=== PATIENT | male | born 1990 | race American Indian/Alaskan Native ===

== ENCOUNTER 2017-03-20 11:17 | Emergency (ER) | payer OTHER ==
[2017-03-20 11:28] VITALS: BP 115/86
[2017-03-20] MEDS ORDERED: XYLOCAINE 1% MPF 5 mL INFILTRATI ONE (11:54)
[2017-03-20] MEDS ORDERED: ZITHROMAX PO ONE (11:54)
[2017-03-20] MEDS ORDERED: ROCEPHIN IM ONE (11:54)
--- NOTE | 2017-03-20 11:58 | Emergency Department Report ---
ED Male HPI - General Chief complaint: Urogenital-Male Stated complaint: STD CHECK Time Seen by Provider: 03/20/17 11:38 Source: patient Mode of arrival: Ambulatory Limitations: No Limitations - History of Present Illness Complaint: dysuria -: Gradual Radiation: none Severity: mild Quality: burning new sexual partner (partner tx for chlamy and kei yesterday- known exposure) - Related Data Sexually active: Yes Allergies Allergy/AdvReac Type Severity Reaction Status Date / Time No Known Allergies Allergy Unverified 03/20/17 11:23 ED Review of Systems ROS: Stated complaint: STD CHECK Other details as noted in HPI Comment: All other systems reviewed and negative Constitutional: no symptoms reported Eyes: as per HPI ENT: as per HPI Respiratory: no symptoms reported Cardiovascular: as per HPI Endocrine: no symptoms reported Gastrointestinal: as per HPI Genitourinary: as per HPI, dysuria, discharge. denies: testicular pain, testicular mass Musculoskeletal: as per HPI Skin: as per HPI Neurological: as per HPI Psychiatric: as per HPI (denies hx) Hematological/Lymphatic: as per HPI ED Past Medical Hx - Past Medical History Previous Medical History?: No - Surgical History Past Surgical History?: No - Social History Smoking Status: Current Every Day Smoker Substance Use Type: Alcohol, Cocaine, Marijuana, Other ED Physical Exam - General Limitations: No Limitations General appearance: alert, in no apparent distress - Head Head exam: Present: atraumatic - Eye Eye exam: Present: normal appearance Pupils: Present: normal accommodation - ENT ENT exam: Present: normal exam - Neck Neck exam: Present: normal inspection - Respiratory Respiratory exam: Present: normal lung sounds bilaterally - Cardiovascular Cardiovascular Exam: Present: regular rate - GI/Abdominal GI/Abdominal exam: Present: soft - Rectal Rectal exam: Present: deferred - exam: Present: normal inspection - Extremities Exam Extremities exam: Present: normal inspection - Back Exam Back exam: Present: normal inspection - Neurological Exam Neurological exam: Present: alert, altered, oriented X3, CN II-XII intact, normal gait - Psychiatric Psychiatric exam: Absent: normal affect (denies psych hx but odd affect. 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 Absent: rash ED Course Vital Signs 03/20/17 11:24 Temperature 97.9 F Pulse Rate 59 L Respiratory 16 Rate Blood Pressure 115/86 O2 Sat by Pulse 99 Oximetry ED Medical Decision Making - Medical Decision Making known exposure Critical care attestation.: If time is entered above; I have spent that time in minutes in the direct care of this critically ill patient, excluding procedure time. ED Disposition Clinical Impression: STD (male) Disposition: DISCHARGED TO HOME OR SELFCARE Is pt being admited?: No Does the pt Need Aspirin: No Condition: Good Instructions: Sexually Transmitted Diseases (ED), Chlamydia Infection (ED), Gonococcal Urethritis (ED) Additional Instructions: safe sex Referrals: ITALO MELENDEZ MD [Referring] - 3-5 Days Time of Disposition: 11:58
== END 2017-03-20 12:41 | disposition home or self-care (01) ==
LOC: ED 11:17
DX: A63.8 Other specified predominantly sexually transmitted diseases (principal); F17.200 Nicotine dependence, unspecified, uncomplicated; F14.10 Cocaine abuse, uncomplicated; F12.10 Cannabis abuse, uncomplicated
CPT/HCPCS: 96372; 99282; J0696

== ENCOUNTER 2017-03-26 10:37 | Emergency (ER) | payer OTHER ==
[2017-03-26 11:36] VITALS: BP 132/92
--- NOTE | 2017-03-26 16:30 | Emergency Department Report ---
HPI - General Chief Complaint: Urogenital-Male Time Seen by Provider: 03/26/17 15:50 - HPI HPI: 26-year-old male presents to ED planning of pain out of discharge and burning with urination times couple days. Patient states his sexual partner was seen here in the ED and treated for chlamydia and trichomoniasis. She denies penile or scrotal pain or swelling. Patient denies fevers/chills/nausea/vomiting/abdominal pain/shortness of breath. ED Past Medical Hx - Past Medical History Previous Medical History?: No - Surgical History Past Surgical History?: No - Social History Smoking Status: Current Every Day Smoker Substance Use Type: Alcohol ED Review of Systems ROS: Stated complaint: BURNING/TINGLING IN PENIS/ABD PAIN Other details as noted in HPI Constitutional: denies: chills, fever Eyes: denies: eye pain, eye discharge, vision change ENT: denies: ear pain, throat pain Respiratory: denies: cough, shortness of breath, wheezing Cardiovascular: denies: chest pain, palpitations Endocrine: no symptoms reported Gastrointestinal: denies: abdominal pain, nausea, diarrhea Genitourinary: frequency, discharge. denies: urgency, dysuria, hematuria, testicular pain, testicular mass Musculoskeletal: denies: back pain, joint swelling, arthralgia Skin: denies: rash, lesions Neurological: denies: headache, weakness, paresthesias Psychiatric: denies: anxiety, depression Hematological/Lymphatic: denies: easy bleeding, easy bruising Physical Exam - Physical Exam Vital Signs: Vital Signs 03/26/17 11:33 Temperature 98.4 F Pulse Rate 62 Respiratory 18 Rate Blood Pressure 132/92 O2 Sat by Pulse 100 Oximetry Physical Exam: GENERAL: Alert and oriented x3, no apparent distress, Normal Gait, atraumatic. HEAD: Head is normocephalic and a-traumatic. EYES: Extra ocular muscles are intact. Pupils are equal, round, and reactive to light and accommodation. LUNGS: Symetrical with respiration, No wheezing, no rales or crackles, CTAB. HEART: S1, S2 present, regular rate and rhythm without murmur, no rubs, no gallops. ABDOMEN: No organomegaly was noted,Positive bowel sounds, soft, and non- distended. . Nontender to palpation on all Quadrants, NO CVA tenderness. UROGENITAL: No scrotal mass, Scrotum non tender to palpation bilaterally, no hernia, no scars or penile discharge. SKIN: Warm and dry, No lesions, No ulceration or induration present. ED Course Vital Signs 03/26/17 11:33 Temperature 98.4 F Pulse Rate 62 Respiratory 18 Rate Blood Pressure 132/92 O2 Sat by Pulse 100 Oximetry ED Medical Decision Making - Medical Decision Making 26-year-old male presents with STD exposure ED course: Urinalysis ordered, chlamydia and gonorrhea sent Urinalysis negative. Patient received 250 mg of Rocephin, 1 g of azithromycin and 2000mg Flagyl Discussed the patient to abstain from sex for 7 days. Discussed safe sex practices. Discussed the follow-up department for further STD screening. Vital signs are normal patient is in no acute distress Critical care attestation.: If time is entered above; I have spent that time in minutes in the direct care of this critically ill patient, excluding procedure time. ED Disposition Clinical Impression: STD exposure, STD (sexually transmitted disease) Disposition: DISCHARGED TO HOME OR SELFCARE Is pt being admited?: No Does the pt Need Aspirin: No Condition: Stable Instructions: Sexually Transmitted Diseases (ED), Safe Sex (ED) Additional Instructions: Abstain from sex for 7-10 days Go to health department for further STD testing Instructions as given Referrals: PRIMARY CARE, [Primary Care Provider] - 3-5 Days Forms: Work/School Release Form Time of Disposition: 17:05
[2017-03-26 16:56] LABS: Bilirubin,Urine NEG (Negative); Blood,Urine NEG (Negative); Ketones,Urine NEG (Negative); Leukocyte Esterase,Urine NEG (Negative); Mucus,Urine FEW /HPF; Nitrite,Urine NEG (Negative); Protein,Urine <15 mg/dL mg/dL (Negative); Urobilinogen,Urine < 2.0 mg/dL (<2.0); WBC,Urine < 1.0 /HPF (0.0-6.0)
[2017-03-26] MEDS ORDERED: ZITHROMAX PO ONE (17:06)
[2017-03-26] MEDS ORDERED: ROCEPHIN IM ONE (17:06)
[2017-03-26] MEDS ORDERED: FLAGYL PO ONE (17:07)
[2017-03-26] MEDS ORDERED: XYLOCAINE 1% MPF 5 mL INFILTRATI ONE (17:07)
== END 2017-03-26 17:40 | disposition home or self-care (01) ==
LOC: ED 10:37
DX: R30.9 Painful micturition, unspecified (principal); R36.9 Urethral discharge, unspecified; Z20.2 Contact with and (suspected) exposure to infections with a predominantly sexual mode of transmission; F17.200 Nicotine dependence, unspecified, uncomplicated
CPT/HCPCS: 81001; 96372; 99282; J0696

== ENCOUNTER 2017-04-22 10:35 | Emergency (ER) | payer OTHER ==
[2017-04-22 11:03] VITALS: BP 126/88
[2017-04-22] MEDS ORDERED: ROCEPHIN IM ONE (14:04)
[2017-04-22] MEDS ORDERED: XYLOCAINE 1% MPF 5 mL INFILTRATI ONE (14:04)
[2017-04-22] MEDS ORDERED: ZITHROMAX PO ONE (14:04)
--- NOTE | 2017-04-22 14:49 | Emergency Department Report ---
ED Male HPI - General Chief complaint: Urogenital-Male Stated complaint: STD Check Source: patient Mode of arrival: Ambulatory Limitations: No Limitations - History of Present Illness Initial comments: 26 year old male presents to ED with dysuria. patient states he knows his sexual partner was diagnosed with GC and would like to be treated himself. patient is stable, neurologically intact and in no acute distress. MD Complaint: dysuria -: Gradual Location: penis Radiation: none Severity: mild Quality: burning Consistency: intermittent Improves with: rest Worsens with: urination new sexual partner (patient states his partner had both GC) denies other symptoms - Related Data Sexually active: Yes Allergies Allergy/AdvReac Type Severity Reaction Status Date / Time No Known Allergies Allergy Unverified 03/20/17 11:23 ED Review of Systems ROS: Stated complaint: STD Check Other details as noted in HPI Constitutional: denies: chills, fever Eyes: denies: eye pain, eye discharge, vision change ENT: denies: ear pain, throat pain Respiratory: denies: cough, shortness of breath, wheezing Cardiovascular: denies: chest pain, palpitations Endocrine: no symptoms reported Gastrointestinal: denies: abdominal pain, nausea, diarrhea Genitourinary: dysuria. denies: urgency, testicular pain, testicular mass Musculoskeletal: denies: back pain, joint swelling, arthralgia Skin: denies: rash, lesions Neurological: denies: headache, weakness, paresthesias Psychiatric: denies: anxiety, depression Hematological/Lymphatic: denies: easy bleeding, easy bruising ED Past Medical Hx - Past Medical History Previous Medical History?: No - Surgical History Past Surgical History?: No - Social History Smoking Status: Current Every Day Smoker Substance Use Type: Alcohol, Cocaine, Marijuana ED Physical Exam - General Limitations: No Limitations General appearance: alert, in no apparent distress - Head Head exam: Present: atraumatic, normocephalic - Eye Eye exam: Present: normal appearance - ENT ENT exam: Present: mucous membranes moist - Neck Neck exam: Present: normal inspection - Respiratory Respiratory exam: Present: normal lung sounds bilaterally. Absent: respiratory distress - Cardiovascular Cardiovascular Exam: Present: regular rate, normal rhythm. Absent: systolic murmur, diastolic murmur, rubs, gallop - GI/Abdominal GI/Abdominal exam: Present: soft, normal bowel sounds. Absent: tenderness, guarding - Rectal Rectal exam: Present: deferred - exam: Present: normal inspection, circumcision. Absent: testicular tenderness, urethral discharge, scrotal swelling External exam: Present: normal external exam - Extremities Exam Extremities exam: Present: normal inspection, full ROM - Back Exam Back exam: Present: normal inspection, full ROM - Neurological Exam Neurological exam: Present: alert, oriented X3, normal gait - Psychiatric Psychiatric exam: Present: normal affect, normal mood - Skin Skin exam: Present: warm, dry, intact, normal color. Absent: rash ED Course Vital Signs 04/22/17 11:00 Temperature 98.8 F Pulse Rate 67 Respiratory 16 Rate Blood Pressure 126/88 O2 Sat by Pulse 100 Oximetry ED Medical Decision Making - Lab Data Lab Results 04/22/17 Range/Units 13:59 Urine Color Yellow (Yellow) Urine Turbidity Clear (Clear) Urine pH 6.0 (5.0-7.0) Ur Specific [place] 1.017 (1.003-1.030) Urine Protein <15 mg/dl (Negative) mg/dL Urine Glucose (UA) Neg (Negative) mg/dL Urine Ketones Neg (Negative) mg/dL Urine Blood Neg (Negative) Urine Nitrite Neg (Negative) Urine Bilirubin Neg (Negative) Urine Urobilinogen < 2.0 (<2.0) mg/dL Ur Leukocyte Esterase Neg (Negative) Urine WBC (Auto) < 1.0 (0.0-6.0) /HPF Urine RBC (Auto) 2.0 (0.0-6.0) /HPF U Epithel Cells (Auto) < 1.0 (0-13.0) /HPF Urine Mucus Few /HPF - Medical Decision Making 26 year old male presents to ED for STD check. patient was treated with IM and PO antibiotics. patient understands and agrees to return to ED for results of culture. Critical care attestation.: If time is entered above; I have spent that time in minutes in the direct care of this critically ill patient, excluding procedure time. ED Disposition Clinical Impression: STD exposure Disposition: DISCHARGED TO HOME OR SELFCARE Is pt being admited?: No Does the pt Need Aspirin: No Condition: Stable Instructions: Sexually Transmitted Diseases (ED) Referrals: PRIMARY CARE, [Primary Care Provider] - 3-5 Days Forms: Work/School Release Form(ED)
[2017-04-22 14:53] LABS: Bilirubin,Urine NEG (Negative); Blood,Urine NEG (Negative); Ketones,Urine NEG (Negative); Leukocyte Esterase,Urine NEG (Negative); Mucus,Urine FEW /HPF; Nitrite,Urine NEG (Negative); Protein,Urine <15 mg/dL mg/dL (Negative); Urobilinogen,Urine < 2.0 mg/dL (<2.0); WBC,Urine < 1.0 /HPF (0.0-6.0)
== END 2017-04-22 15:30 | disposition home or self-care (01) ==
LOC: ED 10:35
DX: R30.0 Dysuria (principal); Z20.2 Contact with and (suspected) exposure to infections with a predominantly sexual mode of transmission; F17.200 Nicotine dependence, unspecified, uncomplicated; F14.10 Cocaine abuse, uncomplicated; F12.10 Cannabis abuse, uncomplicated
CPT/HCPCS: 81001; 87591; 96372; 99282; J0696

== ENCOUNTER 2017-04-29 16:18 | Emergency (ER) | payer OTHER ==
[2017-04-29] MEDS ORDERED: XYLOCAINE 1% MPF 5 mL INFILTRATI ONE (17:05)
[2017-04-29] MEDS ORDERED: ZITHROMAX PO ONE (17:05)
[2017-04-29] MEDS ORDERED: ROCEPHIN IM ONE (17:05)
[2017-04-29 17:08] VITALS: BP 134/68
--- NOTE | 2017-04-29 17:11 | Emergency Department Report ---
ED Male HPI - General Chief complaint: Urogenital-Male Stated complaint: STD TREATMENT Time Seen by Provider: 04/29/17 17:05 Source: patient Mode of arrival: Ambulatory Limitations: No Limitations - History of Present Illness Initial comments: PT c/o penile discharge x 7 days. PT states his gf was just dx with gc and ct. pt requesting STD treatment. MD Complaint: penile discharge, dysuria -: Gradual Location: penis Quality: aching Worsens with: urination denies other symptoms, discharge, dysuria. denies: swelling, mass, rash, urinary retention, nausea/vomiting - Related Data Sexually active: Yes Allergies Allergy/AdvReac Type Severity Reaction Status Date / Time No Known Allergies Allergy Unverified 03/20/17 11:23 ED Review of Systems ROS: Stated complaint: STD TREATMENT Other details as noted in HPI Comment: All other systems reviewed and negative Constitutional: denies: chills, fever Gastrointestinal: denies: abdominal pain, nausea, vomiting Genitourinary: dysuria, discharge Skin: denies: rash ED Past Medical Hx - Past Medical History Previous Medical History?: No - Surgical History Past Surgical History?: No - Social History Smoking Status: Current Every Day Smoker Substance Use Type: Alcohol, Cocaine, Marijuana ED Physical Exam - General Limitations: No Limitations, Language Barrier General appearance: alert, in no apparent distress - Head Head exam: Present: atraumatic, normocephalic, normal inspection - Eye Eye exam: Present: normal appearance. Absent: scleral icterus, conjunctival injection - ENT ENT exam: Present: normal exam, normal external ear exam - Neck Neck exam: Present: normal inspection, full ROM - Respiratory Respiratory exam: Present: normal lung sounds bilaterally - Cardiovascular Cardiovascular Exam: Present: regular rate, normal rhythm, normal heart sounds - GI/Abdominal GI/Abdominal exam: Present: soft. Absent: tenderness - Extremities Exam Extremities exam: Present: normal inspection, full ROM - Back Exam Back exam: Present: normal inspection, full ROM - Neurological Exam Neurological exam: Present: alert, oriented X3 - Psychiatric Psychiatric exam: Present: normal affect, normal mood - Skin Skin exam: Present: warm, dry, intact ED Course Vital Signs 04/29/17 17:05 Temperature 98.4 F Pulse Rate 80 Respiratory 16 Rate Blood Pressure 134/68 O2 Sat by Pulse 100 Oximetry - Reevaluation(s) Reevaluation #1: 04/29/17 17:10 PT aware of plan of care. PT aware he will need to refrain from sexual activity x 7 days. PT advised current partners will need testing/ treatment. PT aware he will need to follow up with PCP or health dept for full panel std testing. Reevaluation #2: 04/29/17 18:05 pt treated empirically for gc and ct. no adverse reaction noted. ED Medical Decision Making - Differential Diagnosis std Critical care attestation.: If time is entered above; I have spent that time in minutes in the direct care of this critically ill patient, excluding procedure time. ED Disposition Clinical Impression: STD exposure, Penile discharge Disposition: DC-01 TO HOME OR SELFCARE Is pt being admited?: No Does the pt Need Aspirin: No Condition: Stable Instructions: Sexually Transmitted Diseases (ED), Safe Sex (ED) Additional Instructions: No sex x 7 days. follow up with PCP or Health dep for full panel STD testing Referrals: MAIA LIRIANO MD [Staff Physician] - 3-5 Days [facility] [Outside] - 3-5 Days Forms: Work/School Release Form(ED) Time of Disposition: 17:13
== END 2017-04-29 18:10 | disposition home or self-care (01) ==
LOC: ED 16:18
DX: R36.9 Urethral discharge, unspecified (principal); Z20.2 Contact with and (suspected) exposure to infections with a predominantly sexual mode of transmission; F17.200 Nicotine dependence, unspecified, uncomplicated; F14.10 Cocaine abuse, uncomplicated; F12.10 Cannabis abuse, uncomplicated
CPT/HCPCS: 87591; 96372; 99283; J0696